=== PATIENT | female | born 1985 | race Caucasian/White ===

== ENCOUNTER 2017-04-19 18:57 | Emergency (ER) | payer BC ==
[2017-04-19] MEDS ORDERED: EPINEPHrine AMP 1 MG/ML SUBCUT ONE (19:39)
[2017-04-19] MEDS ORDERED: diPHENhydraMINE IV* 50 MG/ML 1 ml VIAL (BENADRYL) IV ONE (19:40)
[2017-04-19] MEDS ORDERED: NS 0.9% 1000 ML* 1,000 ML IV ONE (19:42)
[2017-04-19 21:36] LABS: Hematocrit 41 % (35-47); Hemoglobin 13.6 g/dl (12.0-16.0); Mean Corpuscular HGB Conc 33 g/dl (31-36); Mean Corpuscular Hemoglobin 29 pg (27-31); Mean Corpuscular Volume 87 fL (80-97); Mean Platelet Volume 9 um3 (7.4-10.4); Red Blood Count 4.74 10^6/ul (4.0-5.4); Red Cell Distribution Width 13 % (10.5-15); White Blood Count 11.2 10^3/ul (3.5-10.8)
[2017-04-19 21:45] LABS: Albumin 3.8 g/dL (3.2-5.2); BUN/Creatinine Ratio 11.8 (8-20); Calcium 9.3 mg/dL (8.6-10.3); EGFR Non-African American 78.5 (>60); Globulin 2.8 g/dL (2-4); Potassium 3.4 mmol/L (3.5-5.0); Total Bilirubin 0.3 mg/dL (0.2-1.0); Total Protein 6.6 g/dL (6.4-8.9)
[2017-04-19] MEDS ORDERED: Potassium Chloride LIQUID* 20 MEQ PACKET PO ONE (21:57)
[2017-04-19] MEDS ORDERED: predniSONE TAB* 20 MG PO ONE (22:06)
[2017-04-19 22:48] VITALS: BP 142/76
--- NOTE | 2017-04-29 10:42 | ED ---
Loretta Jane Emily, scribed for Martin Pulliam MD on 04/19/17 at 2018 . Allergic Reaction/Systemic - HPI Summary HPI Summary: This patient is a 31 year old F presenting to [facility] accompanied by with a chief complaint of red blotches all over that began 1 hour [employer]. Rash has moved to arms, hands, and ears [employer]. The patient rates the pain 0/10 in severity. Symptoms aggravated by nothing. Symptoms alleviated by nothing. Patient reports palpitations, skin and throat feeling tight. Pt began taking zinc two days ago. Pt has history of asthma and allergic reactions. Medications reviewed this visit. - History of Current Complaint Chief Complaint: EDAllergicReaction Hx Obtained From: Patient Onset/Duration: Sudden Onset, Started hours ago, Still Present Timing: Constant Severity Initially: Mild Severity Currently: Mild Pain Intensity: 0 Pain Scale Used: 0-10 Numeric Location: Diffuse Aggravating Factor(s): Nothing Alleviating Factor(s): Nothing Associated Signs And Symptoms: Positive: Other: - Patient reports palpitations, skin feeling tight, and throat feeling tight - Allergies/Home Medications Allergies/Adverse Reactions: Allergies Allergy/AdvReac Type Severity Reaction Status Date / Time Aspirin Allergy Intermediate Hives Verified 04/19/17 19:03 Latex Allergy Intermediate Hives Verified 04/19/17 19:03 Bupropion [From Wellbutrin] Allergy Palpitation Verified 04/19/17 19:03 s Amoxicillin [From Augmentin] AdvReac Severe Diarrhea Verified 04/19/17 19:03 Clavulanic Acid AdvReac Severe Diarrhea Verified 04/19/17 19:03 [From Augmentin] PMH/Surg Hx/FS Hx/Imm Hx Previously Healthy: No Endocrine/Hematology History: Denies: Hx Diabetes Cardiovascular History: Reports: Other Cardiovascular Problems/Disorders - SVT Denies: Hx Hypertension, Hx Pacemaker/ICD Respiratory History: Reports: Hx Asthma History: Denies: Hx Renal Disease Musculoskeletal History: Reports: Hx Back Problems Sensory History: Denies: Hx Hearing Aid Psychiatric History: Denies: Hx Panic Disorder - Surgical History Surgery Procedure, Year, and Place: rt shoulder,lt knee,lt ovarian cyst, tonsillectomy Infectious Disease History: No Infectious Disease History: Denies: Traveled Outside the [place] in Last 30 Days - Family History Known Family History: Positive: None - Social History Occupation: Employed Full-time Lives: With Family Alcohol Use: Rare Substance Use Type: Reports: None Smoking Status (MU): Never Smoked Tobacco Review of Systems ENT: Other - Positive throat feeling tight Positive: Palpitations Positive: Rash, Other - Positive skin feeling tight All Other Systems Reviewed And Are Negative: Yes Physical Exam - Summary Physical Exam Summary: Appearance: Well-appearing, Well-nourished Skin: Warm, Dry, No rash, no angioedema of mouth or lips, diffuse hives on face , diffuse hives on neck Eyes: Normal, PERRL, EOMI, sclera anicteric, no periorbital edema ENT: Normal, No edema of tongue, posterior pharynx is normal Neck: Supple, nontender, Respiratory: Clear to auscultation Cardiovascular: S1, S2, no murmur, no rub, no gallop Abdomen: Soft, nontender, no organomegaly Bowel sounds: Present Musculoskeletal: Normal, Strength/ROM Intact, no edema, pulses symmetrical Neurological: Normal, A&Ox3, cranial nerves 2-12 wnl, follows commands, gait not tested, sensation intact to pin and light touch Psychiatric: affect normal, behavior appropriate, dressed appropriately, judgment intact Triage Information Reviewed: Yes Vital Signs On Initial Exam: Initial Vitals Temp Pulse Resp BP Pulse Ox 97.5 F 126 16 169/101 96 04/19/17 18:59 04/19/17 18:59 04/19/17 18:59 04/19/17 18:59 04/19/17 18:59 Vital Signs Reviewed: Yes - [place] Coma Scale Coma Scale Total: 15 Diagnostics - Vital Signs Vital Signs Temp Pulse Resp BP Pulse Ox 04/19/17 19:37 74 13 97 04/19/17 19:33 131/84 04/19/17 18:59 97.5 F 126 16 169/101 96 - Laboratory Result Diagrams: 04/19/17 21:03 04/19/17 21:03 Lab Statement: Any lab studies that have been ordered have been reviewed, and results considered in the medical decision making process. Re-Evaluation - Re-Evaluation First Eval Re-Evaluation Time: 19:40 Change: Improved Comment: Pt is feeling better. BP is stable. Heart rate is 82 after epi Second Eval Re-Evaluation Time: 19:56 Change: Improved Third Eval Re-Evaluation Time: 20:18 Change: Improved Allergic Reaction Course/Dx - Course Assessment/Plan: This patient is a 31 year old F presenting to [facility] accompanied by with a chief complaint of red blotches all over that began 1 hour [employer]. Rash has moved to arms, hands, and ears [employer]. The patient rates the pain 0/10 in severity. Symptoms aggravated by nothing. Symptoms alleviated by nothing. Patient reports palpitations, skin feeling tight, and throat feeling tight. Pt began taking zinc two days ago. Pt has history of asthma and allergic reactions. Medications reviewed this visit. PMHx includes L knee orthoscopy, R shoulder orthoscopy, ovarian cyst removal, SVT, and asthma. Physical Exam Findings. No edema of tongue, diffuse hives (face, neck) , no obvious angioedema of mouth or lips, no periorbital edema, posterior pharynx is nml. Medical Decision Making. Impression is allergic reaction probably exacerbated by atenolol. Exact cause is uncertain. Impression: facial urticaria, no angioedema. Test results with no significant abnormalities except for hypokalemia. In the ED course the patient was given epinephrine. Patient will be discharged with prescription for prednisone and doxepin with follow up from PCP. Pt should continue her prescription for atenelol for her SVT. The patient is agreeable with this plan. - Diagnoses Provider Diagnoses: Urticaria Discharge - Discharge Plan Condition: Stable Disposition: HOME Prescriptions: Doxepin HCl 25 mg PO BEDTIME 30 Days #30 cap predniSONE TAB* [Deltasone TAB*] 20 mg PO DAILY 4 Days #4 tab Patient Education Materials: Urticaria (ED) Referrals: Ayse Jhaveri, OPERATIONS CHIEF [Primary Care Provider] - The documentation as recorded by the Loretta neely Emily accurately reflects the service I personally performed and the decisions made by me, Martin Pulliam MD.
== END 2017-04-19 22:40 | disposition home or self-care (01) ==
LOC: ED 18:57
DX: L50.9 Urticaria, unspecified (principal); R00.2 Palpitations; R21 Rash and other nonspecific skin eruption
CPT/HCPCS: 36415; 80053; 85025; 86038; 99283; A9270-GY; J0171; J1200; J7512

== ENCOUNTER 2019-05-01 22:06 | Emergency (ER) | payer BC, OTHER ==
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
[2019-05-02] MEDS ORDERED: Diazepam TAB(*) 5 MG PO ONE
[2019-05-02] MEDS ORDERED: Ketorolac INJ* 30 MG/ML 1 ML VIAL IM ONE
[2019-05-02] MEDS ORDERED: Ketorolac TAB * 10 MG TAB PO ONE (00:05)
[2019-05-02 01:03] VITALS: BP 133/94
== END 2019-05-02 01:02 | disposition home or self-care (01) ==
LOC: ED 22:06
DX: M62.838 Other muscle spasm (principal); M54.9 Dorsalgia, unspecified; M54.2 Cervicalgia; R42 Dizziness and giddiness; R51 Headache; R11.0 Nausea; V43.52XA Car driver injured in collision with other type car in traffic accident, initial encounter; Y92.410 Unspecified street and highway as the place of occurrence of the external cause
CPT/HCPCS: 72050; 72070; 99282; A9270-GY